=== PATIENT | male | born 1985 | race Caucasian/White ===

== ENCOUNTER 2021-06-30 22:05 | Emergency (ER) | payer OTHER, SELFPAY ==
[2021-06-30 22:06] VITALS: BP 172/106; PULSE 110; RESP 18; TEMP 37.8; O2SAT 96; BMI 29.2
[2021-06-30 22:48] LABS: COVID-19 Test Negative (Negative)
[2021-06-30 22:58] LABS: IDNOW Serial# 16C4AD1C; Influenza A Negative (Negative); Influenza B2 Negative (Negative)
[2021-07-01 02:46] VITALS: BP 151/120; PULSE 110; RESP 18; TEMP 37.4; O2SAT 100
--- NOTE | 2021-07-01 02:58 | PC.NURSE ---
Provider notified of HTN and extreme pain. Pt is now reporting extreme weirdness in his body. BP taken x 2 MAP of 130. Lights dimmed. Call quintana in reach.
[2021-07-01] MEDS: Ketorolac Tromethamine 15 MG/ML VIAL IM (03:41)
[2021-07-01] MEDS: Acetaminophen 325 MG TABLET 975 MG PO (03:41)
[2021-07-01] MEDS: Fluorescein Sodium STRIP 1 STRIP EYE-LEFT (03:41)
[2021-07-01] MEDS: Tetracaine HCl/PF 0.5% Oph Sol 4 ML DROPS 1 DROP EYE-LEFT (03:41)
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
[2021-07-01] MEDS: Erythromycin Base 0.5% Oph Oin 1 GM TUBE 1 CM EYE-LEFT (04:29)
== END 2021-07-01 04:34 | disposition home or self-care (01) ==
PROVIDERS: Emergency Provider Student in an Organized Health Care Education/Training Program; PCP Internal Medicine
DX: S05.02XA Injury of conjunctiva and corneal abrasion without foreign body, left eye, initial encounter (principal); X58.XXXA Exposure to other specified factors, initial encounter; Y93.9 Activity, unspecified; Y92.9 Unspecified place or not applicable; Y99.9 Unspecified external cause status; Z20.822 Contact with and (suspected) exposure to COVID-19
CPT/HCPCS: 87502; 87635; 96372; 99282; 99284; J1885